=== PATIENT | female | born 1995 | race African-American/Black ===

== ENCOUNTER 2022-07-30 15:13 | Day surgery (SDC) | payer OTHER ==
[2022-07-30 15:41] VITALS: BMI 30.9
[2022-07-30 16:39] LABS: Fetal Membranes Rupture No Membranes Rupture (No Rupture)
== END 2022-07-30 18:37 | disposition home or self-care (01) ==
LOC: CSHLD/OP 15:13
PROVIDERS: ATTEND Obstetrics & Gynecology
DX: O47.1 False labor at or after 37 completed weeks of gestation (principal); O99.013 Anemia complicating pregnancy, third trimester; D64.9 Anemia, unspecified; O99.891 Other specified diseases and conditions complicating pregnancy; N89.8 Other specified noninflammatory disorders of vagina; Z3A.37 37 weeks gestation of pregnancy
CPT/HCPCS: 84112; 87480; 87510; 87660; 99285

== ENCOUNTER 2022-08-17 05:30 | Inpatient (IN) | payer OTHER ==
[2022-08-17 06:04] VITALS: BMI 32.2
[2022-08-17] MEDS ORDERED: NS w/ Oxytocin 30 units 500 ML IV SCH ×2 (07:00→15:15)
[2022-08-17] MEDS ORDERED: Promethazine HCl 25 MG/ML VIAL IM PRN ×2 (07:00→11:42)
[2022-08-17] MEDS ORDERED: Ondansetron PF 4 MG/2 ML Vial IVP PRN ×3 (07:00→15:06)
[2022-08-17] MEDS ORDERED: hydrALAZINE 20 MG/ML VIAL SLOW IVP PRN ×2 (07:00→15:06)
[2022-08-17] MEDS ORDERED: Lidocaine 1% (PF) 30 ML VIAL SC PRN (07:00)
[2022-08-17] MEDS ORDERED: NS w/ Oxytocin 30 units 500 ML IVPB SCH (07:00)
[2022-08-17] MEDS: Lactated Ringer's 1,000 ML IV SCH ×2 (07:05→17:46)
[2022-08-17] MEDS ORDERED: Bupivacaine/Epinephrine 0.25% 30 ML VIAL ONE (08:00)
[2022-08-17 08:30] LABS: Mean Corpuscular HGB CONC 33.9 g/dL (32.0-36.0); Mean Corpuscular Hemoglobin 28.8 pg (27.0-33.0); Platelet Count 157 10x3/uL (150-450); Red Blood Cell (RBC) Count 3.47 10x6/uL (3.90-5.03); White Blood Cell (WBC) Count 6.7 10x3/uL (3.5-10.5)
[2022-08-17 08:58] LABS: HBSAg Index 0.15 S/CO (0-0.99); Hep B Surf Ag Non-Reactive S/CO (NonReactive); Syphilis Antibody Nonreactive (Nonreactive); Syphilis Antibody Index 0.09 S/CO (<1.00 Non-Reactive)
[2022-08-17] MEDS ORDERED: Fentanyl 2 mcg/Bup 0.1% Cadd 100 ML ONE (10:31)
[2022-08-17] MEDS ORDERED: Acetaminophen 325 MG TAB PO PRN (11:42)
[2022-08-17] MEDS ORDERED: diphenhydrAMINE 50 MG/ML VIAL IVP PRN (11:42)
[2022-08-17] MEDS ORDERED: Naloxone HCl 0.4 mg/ml Vial IVP PRN ×2 (11:42)
[2022-08-17] MEDS ORDERED: ePHEDrine Sulfate 50 MG/10 ML VIAL SLOW IVP PRN (11:42)
[2022-08-17] MEDS ORDERED: Moisturizing Cream (Eucerin) 113 GM JAR TOP PRN (11:42)
[2022-08-17] MEDS ORDERED: Communication Order-Pharmacy FS SCH (11:45)
[2022-08-17] MEDS ORDERED: Fentanyl 2 mcg/Bupivacaine 0.1% Cassette 100 ML EPIDURAL SCH (11:45)
[2022-08-17] MEDS ORDERED: Lactated Ringer's 500 ML IV PRN (12:07)
[2022-08-17] MEDS ORDERED: Bisacodyl 10 MG SUPP PR PRN (15:06)
[2022-08-17] MEDS ORDERED: Boostrix 0.5 ML (Tdap) VIAL (>/=7 yrs of age) IM ONE (15:06)
[2022-08-17] MEDS ORDERED: Misoprostol 200 MCG TAB VAG PRN (15:06)
[2022-08-17] MEDS ORDERED: Lanolin Ointment 7 GM TUBE TOP PRN (15:06)
[2022-08-17] MEDS ORDERED: Preparation H Ointment 28 GM TUBE PR PRN (15:06)
[2022-08-17] MEDS ORDERED: Benzocaine-Menthol 82.5 ML CAN TOP PRN (15:06)
[2022-08-17] MEDS ORDERED: Milk Of Magnesia 30 ML UDCUP PO PRN (15:06)
[2022-08-17] MEDS ORDERED: diphenhydrAMINE 25 MG CAP PO PRN (15:06)
[2022-08-17 16:43] LABS: SARS-CoV-2 NAA Rapid Test Not Detected (NotDetected)
[2022-08-17] MEDS: Ferrous Sulfate 325 MG TAB PO SCH (17:45)
[2022-08-17] MEDS ORDERED: Zolpidem Tartrate 5 MG TAB PO PRN (18:12)
[2022-08-17] MEDS ORDERED: HYDROcodone/Acetaminophen 5/325 mg Tablet PO PRN ×2 (18:12)
[2022-08-17] MEDS: Docusate 100 MG CAP PO SCH (21:50)
[2022-08-17] MEDS: Ibuprofen 800 MG TAB PO SCH (21:50)
[2022-08-18 04:41] LABS: Hemoglobin 8.2 g/dL (12.0-15.5); Mean Corpuscular HGB CONC 34.3 g/dL (32.0-36.0); Mean Corpuscular Hemoglobin 28.8 pg (27.0-33.0); Mean Corpuscular Volume 83.9 fl (81.6-98.3); Mean Platelet Volume 12.3 fl (7.4-10.4); Platelet Count 121 10x3/uL (150-450); RBC Distribution Width 13.8 % (11.5-14.5); Red Blood Cell (RBC) Count 2.85 10x6/uL (3.90-5.03); White Blood Cell (WBC) Count 9.1 10x3/uL (3.5-10.5)
[2022-08-18] MEDS: Ibuprofen 800 MG TAB PO SCH ×2 (05:34→13:23)
[2022-08-18] MEDS: Docusate 100 MG CAP PO SCH (08:17)
[2022-08-18] MEDS: Ferrous Sulfate 325 MG TAB PO SCH (08:17)
[2022-08-18] MEDS ORDERED: Prenatal Vitamin 1 TAB PO SCH (09:00)
[2022-08-18 12:02] VITALS: BP 94/55; TEMP 97.9
== END 2022-08-18 18:05 | disposition home or self-care (01) | DRG 807 ==
LOC: CSHLD 05:31 → CSHPP 17:25
PROVIDERS: ADMIT Obstetrics & Gynecology; ATTEND Obstetrics & Gynecology
PROC: 10E0XZZ Delivery of Products of Conception, External Approach (ICD-10-PCS; principal; 2022-08-17)
DX: O99.02 Anemia complicating childbirth (principal); Z37.0 Single live birth; Z20.822 Contact with and (suspected) exposure to COVID-19; Z3A.40 40 weeks gestation of pregnancy; D64.9 Anemia, unspecified; D57.1 Sickle-cell disease without crisis
CPT/HCPCS: 36415; 51702; 85027; 86780; 86850; 86900; 86901; 87340; J2590; J7120; U0002